=== PATIENT | male | born 1975 | race Caucasian/White ===

== ENCOUNTER → 2016-12-20 | Day surgery (SDC) | payer BC ==
[~2016-12-20] MED LIST: ACETAMINOPHEN 1000 MG/100 ML 100 ML IV ONE; BUPIVACAINE LIPOSOME PF 1.3% 20 ML VIAL ONE; DARU600 PO; LACTATED RINGER'S 1000 ML INJ 1,000 ML ONE; MEPERIDINE HCL 25 MG/ML VIAL ONE; MIDAZOLAM HCL 2 MG/2 ML VIAL ONE; MORPHINE SULFATE 4 MG/ML INJ ONE; NORV100C PO; ONDANSETRON HCL 4 MG/2 ML VIAL IV PUSH ONE; PROPOFOL 200 MG/20 ML AMP IV ONE; REST30CA PO; TRUVTAB2 PO; ceFAZolin 2 GM PREMIX 50 ML ONE
--- NOTE | 2016-12-20 12:02 | MP ---
cc: MONYPAY DATE OF SURGERY: 12/20/2016 PREOPERATIVE DIAGNOSIS Left inguinal hernia. POSTOPERATIVE DIAGNOSIS Left inguinal hernia. PROCEDURE Repair of left inguinal hernia with ProGrip mesh. SURGEON Mony. WATCH TECHNICIAN [place], [place] III. ANESTHESIA General. OPERATIVE FINDINGS The patient was found to have a relatively large internal ring with a small to moderate size direct inguinal hernia with no evidence of incarceration. No other abnormalities were noted. OPERATIVE PROCEDURE The patient was brought to the operating room and after satisfactory general anesthesia was obtained the abdomen was prepped and draped in the usual sterile fashion. 1.3% Exparel was used to infiltrate the skin for local anesthesia and a transverse incision was then made and carried down sharply through the subcutaneous tissue with the cautery being used for hemostasis. The incision was deepened to the external oblique fascia which was opened in the direction of its fibers down to and through the external ring. The underside of the fascia was cleaned and the spermatic cord was isolated with a [place] drain. The cord was then skeletonized to search for an indirect hernia sac which was not identified. The internal ring was seen to be widened and the inguinal floor was patulous and partially disrupted just medial to that, indicating a direct inguinal hernia. The inguinal floor was cleared of adhesions after which the floor was reinforced with interrupted 0 Vicryl sutures which were brought between the internal oblique fascia and the shelving edge of the inguinal ligament. In this manner the floor of the inguinal canal as well as the internal ring were recreated. A piece of ProGrip mesh was cut to the appropriate shape and was placed into the area of dissection and secured anterior to the inguinal floor repair by pressing its posterior Vicryl hooks into the surrounding tissues. After assuring that the entire area had been completely covered, a single suture of 0 Prolene was placed between the mesh and the pubis. Hemostasis was checked for and found to be satisfactory. The remaining area was infiltrated with a total of 20 mL of Exparel. The external oblique fascia was closed with a running 3-0 Vicryl suture. The subcutaneous tissue was closed with interrupted 3-0 Vicryl sutures and the skin was then closed with interrupted 4-0 PDS subcuticular stitches. Steri-Strips and sterile drapes were placed. The patient was then awakened and taken from the operating room, in satisfactory condition, having tolerated the procedure without problem. Estimated blood loss was less than 5 mL. The instrument, sponge and needle counts were reported as being correct x2 at the end of the procedure. MD BRYAN Bates/JAMIE /11:34 AM /11:41 AM
== END | disposition home or self-care (01) ==
LOC: ESDC 07:23
PROVIDERS: ATTEND Surgery
DX: K40.90 Unilateral inguinal hernia, without obstruction or gangrene, not specified as recurrent (principal)
CPT/HCPCS: 00830; 49505; C1781; C9290; J0131; J0690; J2175; J2250; J2270; J2405; J3010; J7120